=== PATIENT | female | born 1945 | race Caucasian/White ===

== ENCOUNTER 2021-03-31 12:55 | Inpatient (IN) | payer BC, OTHER ==
[~2021-03-31] VITALS: Ht 154.9 cm; Wt 125.2 kg
[2021-03-31] MEDS ORDERED: NITROGLYCERIN 0.4 MG SL TAB SL PRN ×2 (16:00→19:00)
[2021-03-31] MEDS ORDERED: cefTRIAXone 1GM/50ML D5W 50 ML IV ONE ×2 (16:00→19:00)
[2021-03-31] MEDS ORDERED: MORPHINE SULF INJ 2 MG/ML SYRINGE 1ML IV PRN ×2 (16:00→19:00)
[2021-03-31] MEDS ORDERED: CLINDAMYCIN 600MG IV 50 ML IV ONE (16:15)
[2021-03-31 16:34] LABS: Basophils # (auto) 0 10 ^3/uL (0-0.2); Basophils % (auto) 0.5 % (0.0-2.0); Eosinophils # (auto) 0.2 10 ^3/uL (0-0.8); Eosinophils % (auto) 1.9 % (0.0-7.0); Hematocrit 37.6 % (36.0-46.0); Hemoglobin 12.6 g/dL (12.2-16.2); Lymphocytes # (auto) 1.6 10 ^3/uL (0.4-5.4); Lymphocytes % (auto) 18.8 % (10.0-50.0); Mean Corpuscular Hemoglobin 27.3 pg (28.0-32.0); Mean Corpuscular Hgb Conc. 33.6 g/dL (32.0-36.0); Monocytes % (auto) 11.4 % (0.0-12.0); Neutrophils # (auto) 5.6 10 ^3/uL (1.6-8.6); Neutrophils % (auto) 67.4 % (37.0-80.0); Platelet Count (auto) 213 10^3/uL (140-450); Red Blood Cells 4.64 10^6/uL (4.0-5.20); Red Cell Distribution Width 15.7 % (11.8-14.3); White Blood Cell 8.4 10^3/uL (4.4-10.8)
[2021-03-31 16:56] LABS: Albumin 3.8 g/dL (3.4-5.0); BUN/Creatinine Ratio 16.7; Calcium 9.1 mg/dL (8.5-10.1); Potassium 4.3 mmol/L (3.5-5.1)
[2021-03-31 16:58] LABS: Lactic Acid w/Reflex 2.2 mmol/L (0.4-2.0)
[2021-03-31 16:59] LABS: Bilirubin, Total 0.7 mg/dL (0.2-1.0); Total Protein 7.1 g/dL (6.4-8.2)
[2021-03-31] MEDS ORDERED: DOCUSATE SOD 100 MG CAP PO PRN (19:00)
[2021-03-31] MEDS ORDERED: ACETAMINOPHEN 325 MG TAB PO PRN (19:00)
[2021-03-31] MEDS ORDERED: ONDANSETRON HCL 4 MG/2 ML VIAL IV PRN (19:00)
[2021-03-31] MEDS ORDERED: LORazepam 0.5 MG TAB PO PRN (19:00)
[2021-03-31] MEDS ORDERED: HYDROcodone-ACET 5/325MG TAB PO PRN (19:00)
[2021-03-31] MEDS ORDERED: ENOXAPARIN SOD 40 MG/0.4 ML SYRINGE SC ONE (19:00)
[2021-03-31] MEDS ORDERED: ALUM & MAG HYDROX-SIMETH LIQ(MAALOX) 30 ML PO PRN (19:00)
[2021-03-31] MEDS ORDERED: METOPROLOL SUCCINATE XL 50 MG TAB PO ONE ×2 (19:00→21:30)
[2021-03-31 19:56] VITALS: BP 122/41
[2021-03-31] MEDS: ATORVASTATIN 20 MG TAB PO SCH (21:38)
[2021-03-31] MEDS: buPROPion HCL 75 MG TAB PO SCH (21:39)
[2021-03-31] MEDS: busPIRone HCL 10 MG TAB PO SCH (21:39)
[2021-03-31] MEDS: CLINDAMYCIN 600MG IV 50 ML IV SCH (21:40)
[2021-03-31] MEDS: SODIUM CHLOR 0.9% PF (SALINE LOCK) 10ML VIAL/SYR IV SCH (21:41)
[2021-03-31] MEDS: ENOXAPARIN SOD 40 MG/0.4 ML SYRINGE SC SCH (21:42)
[2021-03-31 22:08] VITALS: BP 132/41
[2021-04-01 05:00] VITALS: BP 127/64
[2021-04-01] MEDS: LEVOTHYROXINE SODIUM 50 MCG TAB PO SCH (06:17)
[2021-04-01] MEDS: buPROPion HCL 75 MG TAB PO SCH ×2 (06:17→18:28)
[2021-04-01] MEDS: CLINDAMYCIN 600MG IV 50 ML IV SCH ×3 (06:17→21:29)
[2021-04-01] MEDS: SODIUM CHLOR 0.9% PF (SALINE LOCK) 10ML VIAL/SYR IV SCH ×3 (06:17→21:29)
[2021-04-01] MEDS: ENOXAPARIN SOD 40 MG/0.4 ML SYRINGE SC SCH ×2 (06:17→21:30)
[2021-04-01 06:34] LABS: Urine Bacteria FEW /hpf (None Seen); Urine Blood Negative /uL (Negative); Urine Specific Gravity 1.016 (1.001-1.035); Urine WBC 8 /hpf (0 - 5)
[2021-04-01 06:50] LABS: Alcohol, Urine < 3.0 mg/dL (0-10); Amphetamine Screen, Urine NEGATIVE (NEGATIVE); Barbiturate Scree,Urine NEGATIVE (NEGATIVE); Benzodiazephine Screen, Urine NEGATIVE (NEGATIVE); Cannabinoid Screen, Urine NEGATIVE (NEGATIVE); Cocaine Screen, Urine NEGATIVE (NEGATIVE); Opiate Scree,Urine NEGATIVE (NEGATIVE); Phencyclidine Screen, Urine NEGATIVE (NEGATIVE)
[2021-04-01 08:00] VITALS: BP 103/52
[2021-04-01 09:00] VITALS: BP 103/52
[2021-04-01] MEDS: cefTRIAXone 1GM/50ML D5W 50 ML IV SCH (09:58)
[2021-04-01] MEDS: METOPROLOL SUCCINATE XL 50 MG TAB PO SCH (10:03)
[2021-04-01] MEDS: busPIRone HCL 10 MG TAB PO SCH ×2 (10:04→21:29)
[2021-04-01 13:00] VITALS: BP 107/55
[2021-04-01 17:00] VITALS: BP 131/71
[2021-04-01] MEDS: ATORVASTATIN 20 MG TAB PO SCH (21:29)
[2021-04-01 22:00] VITALS: BP 129/71
[2021-04-02 05:00] VITALS: BP 151/74
[2021-04-02] MEDS: SODIUM CHLOR 0.9% PF (SALINE LOCK) 10ML VIAL/SYR IV SCH ×2 (05:30→21:37)
[2021-04-02] MEDS: CLINDAMYCIN 600MG IV 50 ML IV SCH ×3 (06:20→21:24)
[2021-04-02] MEDS: buPROPion HCL 75 MG TAB PO SCH ×2 (06:20→19:00)
[2021-04-02] MEDS: LEVOTHYROXINE SODIUM 50 MCG TAB PO SCH (06:20)
[2021-04-02 08:00] VITALS: BP 137/111
[2021-04-02 09:00] VITALS: BP 130/78
[2021-04-02] MEDS: cefTRIAXone 1GM/50ML D5W 50 ML IV SCH (09:12)
[2021-04-02] MEDS: ENOXAPARIN SOD 40 MG/0.4 ML SYRINGE SC SCH ×2 (09:13→21:23)
[2021-04-02] MEDS: busPIRone HCL 10 MG TAB PO SCH ×2 (09:13→21:23)
[2021-04-02] MEDS: METOPROLOL SUCCINATE XL 50 MG TAB PO SCH (09:14)
[2021-04-02 13:00] VITALS: BP 127/65
[2021-04-02 16:52] VITALS: BP 136/65
[2021-04-02] MEDS: ATORVASTATIN 20 MG TAB PO SCH (21:23)
[2021-04-02] MEDS: MORPHINE SULF INJ 2 MG/ML SYRINGE 1ML IV PRN (21:24)
[2021-04-02 22:00] VITALS: BP_SYST 136; BP_SYST 158; BP_DIAS 65; BP_DIAS 88
[2021-04-03] MEDS: MORPHINE SULF INJ 2 MG/ML SYRINGE 1ML IV PRN (04:34)
[2021-04-03 05:00] VITALS: BP 165/76
[2021-04-03] MEDS: SODIUM CHLOR 0.9% PF (SALINE LOCK) 10ML VIAL/SYR IV SCH ×2 (05:32→13:10)
[2021-04-03] MEDS: CLINDAMYCIN 600MG IV 50 ML IV SCH ×2 (05:32→13:10)
[2021-04-03] MEDS: LEVOTHYROXINE SODIUM 50 MCG TAB PO SCH (06:21)
[2021-04-03] MEDS: buPROPion HCL 75 MG TAB PO SCH (06:21)
[2021-04-03 07:45] VITALS: BP 140/66
[2021-04-03] MEDS: cefTRIAXone 1GM/50ML D5W 50 ML IV SCH (08:28)
[2021-04-03 09:12] VITALS: BP 140/66
[2021-04-03] MEDS: METOPROLOL SUCCINATE XL 50 MG TAB PO SCH (10:01)
[2021-04-03] MEDS: ENOXAPARIN SOD 40 MG/0.4 ML SYRINGE SC SCH (10:01)
[2021-04-03] MEDS: busPIRone HCL 10 MG TAB PO SCH (10:01)
[2021-04-03 12:38] VITALS: BP 158/75
[2021-04-03 13:00] VITALS: BP 158/75
== END 2021-04-03 15:10 | disposition home or self-care (01) | DRG 603 ==
LOC: ER 12:55 → TELE-WESTW 19:06 → ER 19:57
PROVIDERS: ADMIT Hospitalist; ATTEND Family Medicine
DX: L03.115 Cellulitis of right lower limb (principal); N17.9 Acute kidney failure, unspecified; Z68.43 Body mass index [BMI] 50.0-59.9, adult; Z20.822 Contact with and (suspected) exposure to COVID-19; E03.9 Hypothyroidism, unspecified; E66.01 Morbid (severe) obesity due to excess calories; E78.00 Pure hypercholesterolemia, unspecified; E78.5 Hyperlipidemia, unspecified; F32.9 Major depressive disorder, single episode, unspecified; G89.4 Chronic pain syndrome; N18.31 Chronic kidney disease, stage 3a; I12.9 Hypertensive chronic kidney disease with stage 1 through stage 4 chronic kidney disease, or unspecified chronic kidney disease; M19.90 Unspecified osteoarthritis, unspecified site; S92.911A Unspecified fracture of right toe(s), initial encounter for closed fracture; W18.39XA Other fall on same level, initial encounter; I25.10 Atherosclerotic heart disease of native coronary artery without angina pectoris; I87.2 Venous insufficiency (chronic) (peripheral); K21.9 Gastro-esophageal reflux disease without esophagitis; K29.70 Gastritis, unspecified, without bleeding; S80.11XA Contusion of right lower leg, initial encounter; Z82.49 Family history of ischemic heart disease and other diseases of the circulatory system; Z83.3 Family history of diabetes mellitus; Z95.810 Presence of automatic (implantable) cardiac defibrillator; Y93.89 Activity, other specified; Y92.89 Other specified places as the place of occurrence of the external cause; Y99.8 Other external cause status; Z79.899 Other long term (current) drug therapy
CPT/HCPCS: 36415; 71045; 73630; 80053; 80061; 80307; 81001; 83036; 83605; 84484; 85025; 87040; 87070; 87077; 87086; 87186; 87205; 87426; 93005; 93971; 96365; 96367; G0378; J0696; J3490